=== PATIENT | female | born 1970 | race Caucasian/White ===

== ENCOUNTER 2020-06-13 18:01 | Emergency (ER) | payer OTHER, SELFPAY ==
[2020-06-13] VITALS (10 sets, daily range): BP systolic 117–143; BP diastolic 76–96; PULSE 80–99; RESP 17–31; TEMP 36.6; O2SAT 96–100
--- NOTE | ~2020-06-13 | CT_ITS ---
EXAMINATION: CT BRAIN W/O DATE: 06/13/2020 18:41 INDICATION: Seizure TECHNIQUE: Computed tomography (CT) of the head was performed without intravenous contrast. The dose- length product was 605.33 mGy-cm. The mA was adjusted according to patient size. Iterative reconstruc tion technique was employed. COMPARISON: CT dated 05/29/2017 FINDINGS: Normal brain parenchymal volume for age. Normal rosenberg-white differentiation. No acute intrac ranial hemorrhage, infarction, mass or mass effect. No ventriculomegaly or midline shift. Midline sagittal images demonstrate a normal corpus callosum, c raniovertebral junction and sella turcica. Basilar cisterns are patent. Paranasal sinuses and mastoids are pneumatized. No depressed skull fractures. IMPRESSION: 1. No acute intracranial abnormality. Reviewed, dictated and finalized at location A.
--- NOTE | 2020-06-13 18:10 | ECG_ITS ---
Measurements Intervals [place] Rate: 93 P: 58 SC: 133 QRS: 50 QRSD: 91 T: 34 QT: 369 QTc: 460 Interpretive Statements SINUS RHYTHM BORDERLINE ST ABNORMALITY- ANTEROLAT/INF LEADS BASELINE ARTIFACT- II, III, V3 BORDERLINE ECG Electronically Signed On 06-14-2020 11:30:18 CDT by Bethel Foster D.O.
[2020-06-13 18:22] LABS: Basophils Absolute Auto 0.1 K/mm3 (0.0-0.1); Basophils Percent Auto 0.5 % (0.2-1.2); Eosinophils Absolute Auto 0.2 K/mm3 (0-0.3); Eosinophils Percent Auto 1.8 % (0-4.4); Hematocrit 33.3 % (37.0-47.0); Immature Granulocyte Absolute 0.04 K/mm3 (0.00-0.031); Immature Granulocyte Percent A 0.4 % (0-0.5); Lymphocytes Absolute Auto 4.67 K/mm3 (0.9-3.2); Lymphocytes Percent Auto 48.3 % (18.3-44.2); Mean Corpuscular Hemoglobin 29.3 pg (26-34); Mean Corpuscular Volume 88.8 fl (80-100); Mean Platelet Volume 10.5 fl (7.4-10.4); Monocytes Absolute Auto 0.6 K/mm3 (0.1-0.6); Monocytes Percent Auto 5.8 % (2.6-8.5); Neutrophils Absolute Auto 4.2 K/mm3 (1.3-6.7); Neutrophils Percent Auto 43.2 % (45.5-73.1); Platelet Count Result 212 k/mm3 (150-375); Red Blood Count 3.75 M/mm3 (4.2-5.4); Red Cell Distribution Width 15.4 % (11.5-14.5); White Blood Count 9.7 K/mm3 (4.5-10.0)
--- NOTE | 2020-06-13 18:30 | ED.GENADULT ---
HPI - General Adult General Chief complaint: Seizure Stated complaint: SEIZURE Time Seen by Provider: 06/13/20 18:05 Source: patient and family (father) Mode of arrival: EMS Limitations: altered mental status History of Present Illness HPI narrative: Pt was at [employer] with father, he met her there to help her grocery shop. States that she was confused when she arrived at the store, she completed her shopping and while in line was dropping her items on the floor instead of the belt. When he asked her what she was doing she stated she was having trouble seeing. When they walked out she quit talking to him, then he noticed her right hand shaking. She then lowered to the apartment groundskeeper had generalized jerking of all extremities. Pt was postictal when EMS arrived. She remains confused here in ED and history is from father. Pt denies any recent drug use, but father states that she just, in the past month completed 28 day rehab for methamphetamine and possibly cocaine. She was at work earlier today, she lives alone but her father handles her finances due to her drug history. Mother reports that patient had 2 prior seizures, several years ago and does not seem to have been treated. Related Data Allergies Allergy/AdvReac Type Severity Reaction Status Date / Time No Known Allergies Allergy Unverified 05/29/17 06:24 Course Course Emergency Course: Pt is alert and oriented now. Spoke with Dr. Martines from neurology. He recommends starting Keppra 500 mg twice daily and follow-up with him in the office. Patient states that her last seizure was 6 years ago and she did not receive any follow-up at that time or medication. Plan discussed with patient and her father. Vital Signs Vital signs: Vital Signs Temperature 36.6 C 06/13/20 18:03 Pulse Rate 99 06/13/20 18:03 Respiratory Rate 18 06/13/20 18:03 Blood Pressure 132/87 06/13/20 18:03 Pulse Oximetry 96 06/13/20 18:03 Temperature 36.6 C 06/13/20 18:03 Pulse Rate 97 06/13/20 18:08 Respiratory Rate 18 06/13/20 18:03 Blood Pressure 132/87 06/13/20 18:03 Pulse Oximetry 96 06/13/20 18:03 Medical Decision Making Vital Signs Vital Signs: Vital Signs Temperature 36.6 C 06/13/20 18:03 Pulse Rate 99 06/13/20 18:03 Respiratory Rate 18 06/13/20 18:03 Blood Pressure 132/87 06/13/20 18:03 Pulse Oximetry 96 06/13/20 18:03 Temperature 36.6 C 06/13/20 18:03 Pulse Rate 97 06/13/20 18:08 Respiratory Rate 18 06/13/20 18:03 Blood Pressure 132/87 06/13/20 18:03 Pulse Oximetry 96 06/13/20 18:03 Lab Data Result diagrams: 06/13/20 18:15 06/13/20 18:15 Labs: Lab Results 06/13/20 06/13/20 Range/Units 18:15 18:15 WBC 9.7 (4.5-10.0) K/mm3 RBC 3.75 L (4.2-5.4) M/mm3 Hgb 11.0 L (12.0-15.0) g/dL Hct 33.3 L (37.0-47.0) % MCV 88.8 (80-100) fl MCH 29.3 (26-34) pg MCHC 33.0 (32-36) g/dl RDW 15.4 H (11.5-14.5) % Plt Count 212 (150-375) k/mm3 MPV 10.5 H (7.4-10.4) fl Immature Gran % (Auto) 0.4 (0-0.5) % Neut % (Auto) 43.2 L (45.5-73.1) % Lymph % (Auto) 48.3 H (18.3-44.2) % [place] % (Auto) 5.8 (2.6-8.5) % Eos % (Auto) 1.8 (0-4.4) % Baso % (Auto) 0.5 (0.2-1.2) % Lymph # (Auto) 4.67 H (0.9-3.2) K/mm3 [place] # (Auto) 0.6 (0.1-0.6) K/mm3 Eos # (Auto) 0.2 (0-0.3) K/mm3 Baso # (Auto) 0.1 (0.0-0.1) K/mm3 Abs Immat Gran (auto) 0.04 H (0.00-0.031) K/mm3 Absolute Neuts (auto) 4.2 (1.3-6.7) K/mm3 Absolute Nucleated RBC 0.0 (0.0-0.012) K/mm3 Nucleated RBC % 0.0 (0.0-0.2) % Sodium Pending Potassium Pending Chloride Pending Carbon Dioxide Pending Anion Gap Pending BUN Pending Creatinine Pending Estim Creat Clear Calc Pending Estimated GFR Pending Glucose Pending Calcium Pending Total Bilirubin Pending AST Pending ALT Pending Alkaline Phosphatase Pending Total Protein Pe
[2020-06-13 18:35] LABS: Alanine Aminotransferase 22 U/L (4-35); Albumin Level 4.2 g/dL (3.5-5.1); Alkaline Phosphatase 78 U/L (38-126); Anion Gap 13 mmol/L (8-16); Aspartate Amino Transferase 30 U/L (14-36); Bilirubin,Total 0.5 mg/dL (0.2-1.3); Blood Urea Nitrogen 17 mg/dL (7-17); Calcium 9.1 mg/dL (8.4-10.2); Carbon Dioxide 24 mmol/L (22-30); Chloride 99 mmol/L (98-107); Estimated CRCL calculation 69 ml/min; Estimated Glomerular Filt Rate 59; Glucose 85 mg/dL (65-105); Potassium 3.6 mmol/L (3.4-5.0); Sodium 136 mmol/L (137-145)
--- NOTE | 2020-06-13 18:35 | PC.NURSE ---
PT TO CT AT THIS TIME, LAB CONTACTED ABOUT ADD ONS.
--- NOTE | 2020-06-13 19:16 | PC.NURSE ---
report to CARITO Vasquez at this time, she has assumed pt care.
[2020-06-13 19:20] LABS: Add Urine Microscopic? YES; Appearance Urine Clear (Clear); Bacteria Urine Trace /hpf; Bilirubin Urine Negative (Negative); Blood Urine 1+ (Negative); Color Urine Straw (Yellow); Glucose Urine UA Negative (Negative); Ketones Urine Negative (Negative); Leukocyte Esterase Ur Negative LEU/UL (Negative); Nitrate Urine Negative (Negative); Protein Urine 1+ mg/dL (Negative); RBC Urine 0-2 /hpf (0-2); Specific Grav Ur 1.011 (1.001-1.035); Squamous Epithelial Cell Urine Occasional /hpf (Few); Urobilinogen Urine Negative mg/dL (<2.0); WBC Urine 0-3 /hpf
[2020-06-13 19:39] LABS: Amphetamine Screen Urine Negative (Negative); Barbiturate Screen Urine Negative (Negative); Benzodiazepines Screen Urine Negative (Negative); Cannabinoid Screen Urine Negative (Negative); Cocaine Screen Urine Negative (Negative); Methadone Screen Urine Negative (Negative); Opiate Screen Urine Negative (Negative); Phencyclidine Screen Urine Negative (Negative)
[2020-06-13 21:06] LABS: Ethanol < 10 mg/dL (<10)
[2020-06-13] MEDS: ACETAMINOPHEN 325 MG TABLET 650 MG PO (21:11)
[2020-06-13] MEDS: levETIRAcetam 500 MG TABLET PO (22:05)
[2020-06-19 13:18] LABS: Methyl Alcohol Level None Detected (None Detected)
--- NOTE | 2020-06-19 23:12 | ED.GENADULT ---
HPI - General Adult General Chief complaint: Seizure Stated complaint: SEIZURE Time Seen by Provider: 06/13/20 18:05 Source: patient and family (father) Mode of arrival: EMS Limitations: altered mental status History of Present Illness HPI narrative: Patient was brought in by EMS after father called 911 when patient had a seizure while they were shopping for groceries. Father reports that patient was acting oddly prior to the seizure, complaining that she could not see, dropping food on the floor while they were checking out at the grocery store. Her seizure began as staring and right hand tremor, then she dropped to the ground slowly and had generalized jerking of all extremities. When EMS arrived she was postictal, unable to tell where she was or what it happened. She had urinated. She has a remote history of seizure, never treated. She also has a history of drug abuse and recently completed rehab. She is currently unable to give a history. Onset (ago): hour(s) Treatments prior to arrival: none Related Data Allergies Allergy/AdvReac Type Severity Reaction Status Date / Time No Known Allergies Allergy Unverified 05/29/17 06:24 Review of Systems Review of Systems: ROS unobtainable: Yes unobtainable due to mental status Exam Const: General: no acute distress Limitations: altered mental status HENMT: Head: normal to inspection Mouth: Yes tongue abnormal (bit her tongue) Eyes: Pupils: Equal, round and reactive pupils present Resp: Effort & Inspection: normal respiratory effort Auscultation: clear to auscultation bilaterally Cardio: Rate: regular rate Rhythm: regular rhythm GI: GI Palp: Yes Soft to palpation Skin: General skin exam: normal color Rashes: no rashes Wounds: no wounds Neuro: General: moves all extremities and no focal motor deficits Extrem: General: normal to inspection Psych: Appearance: disheveled Mental Status: other (unable to recount events.) Speech and movement: Slurred speech present Course Course Emergency Course: Patient's father was able to determine that the patient's last seizure was approximately 6 years ago. She was more lucid after approximately an hour. Spoke with Dr. Martines regarding seizure, he recommends starting Keppra 500 mg twice daily and patient to follow-up with him in the office. Plan discussed with patient and her father Vital Signs Vital signs: Vital Signs Temperature 36.6 C 06/13/20 18:03 Pulse Rate 99 06/13/20 18:03 Respiratory Rate 18 06/13/20 18:03 Blood Pressure 132/87 06/13/20 18:03 Pulse Oximetry 96 06/13/20 18:03 Temperature 36.6 C 06/13/20 18:03 Pulse Rate 92 06/13/20 22:13 Respiratory Rate 20 06/13/20 22:13 Blood Pressure 117/76 06/13/20 22:13 Pulse Oximetry 100 06/13/20 22:13 Medical Decision Making Vital Signs Vital Signs: Vital Signs Temperature 36.6 C 06/13/20 18:03 Pulse Rate 99 06/13/20 18:03 Respiratory Rate 18 06/13/20 18:03 Blood Pressure 132/87 06/13/20 18:03 Pulse Oximetry 96 06/13/20 18:03 Temperature 36.6 C 06/13/20 18:03 Pulse Rate 92 06/13/20 22:13 Respiratory Rate 20 06/13/20 22:13 Blood Pressure 117/76 06/13/20 22:13 Pulse Oximetry 100 06/13/20 22:13 Lab Data Result diagrams: 06/13/20 18:15 06/13/20 18:15 Labs: Lab Results 06/13/20 06/13/20 06/13/20 Range/Units 18:15 18:15 18:15 WBC 9.7 (4.5-10.0) K/mm3 RBC 3.75 L (4.2-5.4) M/mm3 Hgb 11.0 L (12.0-15.0) g/dL Hct 33.3 L (37.0-47.0) % MCV 88.8 (80-100) fl MCH 29.3 (26-34) pg MCHC 33.0 (32-36) g/dl RDW 15.4 H (11.5-14.5) % Plt Count 212 (150-375) k/mm3 MPV 10.5 H (7.4-10.4) fl Immature Gran % (Auto) 0.4 (0-0.5) % Neut % (Auto) 43.2 L (45.5-73.1) % Lymph % (Auto) 48.3 H (18.3-44.2) % [place] % (Auto) 5.8 (2.6-8.5) % Eos % (Auto) 1.8 (0-4.4) % Baso % (Auto) 0.5 (0.2-1.2) % Lymph # (Aut
== END 2020-06-13 22:16 | disposition home or self-care (01) ==
PROVIDERS: Physician Assistant; Emergency Provider Emergency Medicine; PCP Physician Assistant
DX: R56.9 Unspecified convulsions (principal); R94.31 Abnormal electrocardiogram [ECG] [EKG]
CPT/HCPCS: 36415; 70450; 80053; 80307; 81001; 84443; 84600; 85025; 93005; 99284; A9270

== ENCOUNTER 2020-10-01 12:11 | Emergency (ER) | payer OTHER, SELFPAY ==
[2020-10-01] VITALS (14 sets, daily range): BP systolic 115–182; BP diastolic 101–125; PULSE 71–129; RESP 16–30; TEMP 36.9; O2SAT 92–100
--- NOTE | ~2020-10-01 | XR_ITS ---
EXAMINATION: XR chest 1V portable INDICATION: Cough and shortness of breath TECHNIQUE: Portable AP chest at 1407 hours COMPARISON: 05/29/2017 FINDINGS: There are patchy opacities of the mid and lower lung zones. No pleural effusion or pneumoth orax is identified. The cardiomediastinal silhouette is normal. IMPRESSION: 1. Patchy opacities of the mid and lower lung zones, consistent with atelectasis versus pneumonia. Reviewed, dictated and finalized at location A. ND BAKER IMPRESSION: 1. Patchy opacities of the mid and lower lung zones, consistent with atelectasi s versus pneumonia.
[2020-10-01 13:13] LABS: Basophils Absolute Auto 0.1 K/mm3 (0.0-0.1); Basophils Percent Auto 0.5 % (0.2-1.2); Eosinophils Absolute Auto 0.2 K/mm3 (0-0.3); Eosinophils Percent Auto 1.7 % (0-4.4); Hematocrit 39.5 % (37.0-47.0); Hemoglobin 13.4 g/dL (12.0-15.0); Lymphocytes Absolute Auto 3.76 K/mm3 (0.9-3.2); Lymphocytes Percent Auto 41.1 % (18.3-44.2); Mean Corpuscular HGB Conc 33.9 g/dl (32-36); Mean Corpuscular Hemoglobin 28.3 pg (26-34); Mean Corpuscular Volume 83.5 fl (80-100); Mean Platelet Volume 10.9 fl (7.4-10.4); Monocytes Absolute Auto 0.7 K/mm3 (0.1-0.6); Monocytes Percent Auto 7.9 % (2.6-8.5); Neutrophils Absolute Auto 4.5 K/mm3 (1.3-6.7); Neutrophils Percent Auto 48.8 % (45.5-73.1); Platelet Count Result 248 k/mm3 (150-375); Red Blood Count 4.73 M/mm3 (4.2-5.4); Red Cell Distribution Width 13.3 % (11.5-14.5); White Blood Count 9.2 K/mm3 (4.5-10.0)
[2020-10-01 13:16] LABS: Add Urine Microscopic? NO; Appearance Urine Clear (Clear); Bilirubin Urine Negative (Negative); Blood Urine Negative (Negative); Color Urine Yellow (Yellow); Glucose Urine UA Negative (Negative); Ketones Urine Negative (Negative); Leukocyte Esterase Ur Negative LEU/UL (Negative); Nitrate Urine Negative (Negative); Protein Urine Negative (Negative); Specific Grav Ur 1.017 (1.001-1.035); Urobilinogen Urine Negative mg/dL (<2.0)
[2020-10-01 13:26] LABS: Alanine Aminotransferase 15 U/L (4-35); Albumin Level 4.4 g/dL (3.5-5.1); Alkaline Phosphatase 103 U/L (38-126); Anion Gap 8 mmol/L (8-16); Aspartate Amino Transferase 28 U/L (14-36); Bilirubin,Total 0.7 mg/dL (0.2-1.3); Blood Urea Nitrogen 14 mg/dL (7-17); Calcium 9.7 mg/dL (8.4-10.2); Carbon Dioxide 28 mmol/L (22-30); Chloride 103 mmol/L (98-107); Estimated CRCL calculation 75 ml/min; Estimated Glomerular Filt Rate > 60; Glucose 104 mg/dL (65-105); Lipase 147 U/L (23-300); Potassium 3.9 mmol/L (3.4-5.0); Sodium 139 mmol/L (137-145)
--- NOTE | 2020-10-01 13:30 | PC.NURSE ---
Called lab to add on Urine HCG
--- NOTE | 2020-10-01 13:39 | ECG_ITS ---
Measurements Intervals [place] Rate: 79 P: 59 CA: 146 QRS: 60 QRSD: 81 T: 42 QT: 399 QTc: 460 Interpretive Statements SINUS RHYTHM NORMAL ECG Electronically Signed On 10-01-2020 15:25:03 [employer]GER [employer]LE[employer] by Bethel Foster D.O.
--- NOTE | 2020-10-01 13:42 | ED.URI ---
HPI - URI/Sore Throat General Chief Complaint: Nausea/Vomiting/Diarrhea <JARETH Dangelo Last Filed: 10/01/20 15:56> Stated Complaint: headache <JARETH Dangelo Last Filed: 10/01/20 15:56> Time Seen by Provider: 10/01/20 13:16 <JARETH Dangelo Last Filed: 10/01/20 15:56> Source: patient <JARETH Dangelo Last Filed: 10/01/20 15:56> Mode of arrival: ambulatory <JARETH Dangelo Last Filed: 10/01/20 15:56> Limitations: no limitations <JARETH Dangelo Last Filed: 10/01/20 15:56> History of Present Illness HPI Narrative: This is a 50-year-old female that presents the emergency department for cold symptoms x2 days. Reports cough, congestion, sore throat, myalgias, nausea, vomiting. Also reports migraine headaches. Does report history of migraines. She has been taking ibuprofen with little relief. Reports some shortness of breath. Denies fever or chest pain. <JARETH Dangelo Last Filed: 10/01/20 15:56> Related Data Home Medications: Home Medications Medication Instructions Recorded Confirmed buspirone mg 10/01/20 clonazepam 10/01/20 hydroxyzine HCl 10/01/20 tizanidine mg 10/01/20 trazodone 10/01/20 10/01/20 <JARETH Dangelo Last Filed: 10/01/20 15:56> Allergies/Adverse Reactions: Allergies Allergy/AdvReac Type Severity Reaction Status Date / Time No Known Allergies Allergy Verified 10/01/20 13:12 <JARETH Dangelo Last Filed: 10/01/20 15:56> Review of Systems Review of Systems: Narrative: CONSTITUTIONAL: Denies fever ENT: Reports rhinorrhea, congestion, sore throat CARDIOVASCULAR: Denies chest pain RESPIRATORY: Reports cough and dyspnea. GASTROINTESTINAL: Reports nausea and vomiting GENITOURINARY: Denies dysuria <JARETH Dangelo Last Filed: 10/01/20 15:56> All systems reviewed & are unremarkable except as noted in HPI and below <Janell Espana PA-C - Last Filed: 10/01/20 15:56> [facility] Past Medical History Medical History: Medical History (Updated 10/01/20 @ 15:27 by Janell Espana PA-C) History of anxiety <Janell Espana PA-C - Last Filed: 10/01/20 15:56> Surgical History Surgical History: Surgical History (Updated 10/01/20 @ 14:09 by Janell Espana PA-C) History of tubal ligation <Janell Espana PA-C - Last Filed: 10/01/20 15:56> Social History Social History: Social History Gender identity (if verbalized by the patient): Female <Janell Espana PA-C - Last Filed: 10/01/20 15:56> Exam Narrative: Exam Narrative: GENERAL: Well-appearing, well-nourished, and in no acute distress. HEAD: Normocephalic, atraumatic. EYES: EOMI. ENT: Nares clear, no rhinorrhea or epistaxis. Mucous membranes moist. Oropharynx without tonsillar hypertrophy exudate or other lesions. Bilateral TMs pearly rosenberg non-bulging NECK: Supple. No adenopathy or masses. CHEST: Clear to auscultation. No respiratory distress. No wheezes rales or rhonchi HEART: Regular rate and rhythm. No murmur heard. Normal peripheral pulses. ABDOMEN: Soft, nontender, nondistended, normal active bowel sounds. EXTREMITIES: Normal range of motion. No edema. SKIN: Warm, dry, no rash. NEURO: No focal deficits. Alert and oriented x3. PSYCH: Normal mood and affect <Janell Espana PA-C - Last Filed: 10/01/20 15:56> Course Vital Signs Vital signs: Vital Signs Temperature 98.4 F 10/01/20 12:52 Pulse Rate 129 H 10/01/20 12:52 Respiratory Rate 18 10/01/20 12:52 Blood Pressure 118/107 H 10/01/20 12:52 Pulse Oximetry 100 10/01/20 12:52 Temperature 98.4 F 10/01/20 12:52 Pulse Rate 71 10/01/20 16:13 Respiratory Rate 16 10/01/20 16:13 Blood Pressure 164/106 H 10/01/20 16:13 Pulse Oximetry 100 10/01/20 16:13 <Janell Espana PA-C - Last Filed: 10/01/20 15:56> Vital Signs Te
[2020-10-01 13:57] LABS: Pregnancy On Board Control Positive; Urine Pregnancy Test Negative
[2020-10-01] MEDS: KETOROLAC 30 MG/ML VIAL (*BKC) IV PUSH (14:10)
[2020-10-01] MEDS: diphenhydrAMINE HCl INJ 50 MG/ML VIAL 25 MG IV PUSH (14:10)
[2020-10-01] MEDS: METOCLOPRAMIDE HCL INJ 10 MG/2 ML VIAL IV PUSH (14:11)
[2020-10-01] MEDS: SODIUM CHLORIDE 0.9% IV 1,000 ML 999 ML IV CONT (14:11)
[2020-10-02 13:13] LABS: SARS-CoV-2 RNA PCR Negative
== END 2020-10-01 16:15 | disposition home or self-care (01) ==
PROVIDERS: Physician Assistant; Emergency Provider General Practice; PCP Physician Assistant
DX: J18.9 Pneumonia, unspecified organism (principal); Z20.822 Contact with and (suspected) exposure to COVID-19; F41.9 Anxiety disorder, unspecified
CPT/HCPCS: 36415; 71045; 80053; 81003; 81025; 83690; 85025; 87804; 93005; 96361; 96374; 96375; 99284; C9803; J0131; J1200; J1885; J2765; J7030; U0003; U0005

== ENCOUNTER 2023-10-27 12:33 | Inpatient (IN) | payer OTHER, SELFPAY ==
[2023-10-27] VITALS (11 sets, daily range): BP systolic 150–169; BP diastolic 84–106; PULSE 112–133; RESP 16–20; TEMP 36.7–38.2; O2SAT 99–100; BMI 22.8
--- NOTE | ~2023-10-27 | CT_ITS ---
EXAMINATION: CT facial bones w con DATE: 10/27/2023 13:49 INDICATION: Dental abscess. Left facial swelling. TECHNIQUE: Computed tomography (CT) of the facial bones and maxillofacial region was performed with 7 5 mL Omnipaque 350 intravenous contrast. Automated exposure control and iterative reconstruction tech Lucky Oysterque were employed. The dose-length product was 331.01 mGy-cm. COMPARISON: None. FINDINGS: There is left face soft tissue swelling. There are mildly enlarged left submandibular lymph nodes, likely reactive. There is mild mucosal thickening in the paranasal sinuses. The mastoid air c ells are normal. The orbits are normal. There are carious lesions involving all of the teeth. Multipl e teeth are broken. There are periapical lucencies at many of the teeth. Periapical lucencies breech the buccal cortex of the alveolar process at teeth 11, 22, 26, and 28. IMPRESSION: 1. Extensive dental disease. 2. Left face soft tissue swelling. No soft tissue abscess. 3. Mild left submandibular lymphadenopathy, likely reactive. Reviewed, dictated and finalized at location A.
[2023-10-27 13:08] LABS: Basophils Absolute Auto 0.1 K/mm3 (0.0-0.1); Basophils Percent Auto 0.3 % (0.2-1.2); Eosinophils Absolute Auto 0.1 K/mm3 (0-0.3); Eosinophils Percent Auto 0.3 % (0-4.4); Hematocrit 38.5 % (37.0-47.0); Hemoglobin 12.8 g/dL (12.0-15.0); Immature Granulocyte Absolute 0.12 K/mm3 (0.00-0.031); Immature Granulocyte Percent A 0.6 % (0-0.5); Lymphocytes Absolute Auto 1.98 K/mm3 (0.9-3.2); Lymphocytes Percent Auto 9.3 % (18.3-44.2); Mean Corpuscular HGB Conc 33.2 g/dl (32-36); Mean Corpuscular Hemoglobin 29.2 pg (26-34); Mean Corpuscular Volume 87.7 fl (80-100); Mean Platelet Volume 10.8 fl (7.4-10.4); Monocytes Absolute Auto 1.3 K/mm3 (0.1-0.6); Monocytes Percent Auto 6.1 % (2.6-8.5); Neutrophils Absolute Auto 17.8 K/mm3 (1.3-6.7); Neutrophils Percent Auto 83.4 % (45.5-73.1); Platelet Count Result 276 k/mm3 (150-375); Red Blood Count 4.39 M/mm3 (4.2-5.4); Red Cell Distribution Width 14.4 % (11.5-14.5); White Blood Count 21.3 K/mm3 (4.5-10.0)
--- NOTE | 2023-10-27 13:17 | ED.DENTAL ---
HPI - Dental/Oral General Chief complaint: Dental/Oral <JARETH Dangelo Last Filed: 10/27/23 18:26> Stated complaint: dental infection <JARETH Dangelo Last Filed: 10/27/23 18:26> Time Seen by Provider: 10/27/23 12:41 <JARETH Dangelo Last Filed: 10/27/23 18:26> Source: patient <JARETH Dangelo Last Filed: 10/27/23 18:26> Mode of arrival: ambulatory <JARETH Dangelo Last Filed: 10/27/23 18:26> Limitations: no limitations <JARETH Dangelo Last Filed: 10/27/23 18:26> History of Present Illness HPI Narrative: This is a 53 year old female that presents to the ER for swelling and pain to the left lower lip. Ongoing since yesterday. Reports associated fevers. Denies drainage from the area of dysphagia. <JARETH Dangelo Last Filed: 10/27/23 18:26> Related Data Home medications: Home Medications Medication Instructions Recorded Confirmed buspirone 5 mg tablet mg 10/01/20 clonazepam 0.5 mg tablet 10/01/20 hydroxyzine HCl 25 mg tablet 10/01/20 tizanidine 4 mg tablet mg 10/01/20 trazodone 50 mg tablet 10/01/2021 <JARETH Dangelo Last Filed: 10/27/23 18:26> Allergies/adverse reactions: Allergies Allergy/AdvReac Type Severity Reaction Status Date / Time No Known Allergies Allergy Verified 10/27/23 12:40 <JARETH Dangelo Last Filed: 10/27/23 18:26> Review of Systems Review of Systems: CONSTITUTIONAL: Denies fever ENT: Reports dentalgia. Denies sore throat RESPIRATORY: Denies dyspnea. <JARETH Dangelo Last Filed: 10/27/23 18:26> All systems reviewed & are unremarkable except as noted in HPI and below <Janell Espana PA-C - Last Filed: 10/27/23 18:26> [facility] Past Medical History Medical History: Medical History (Updated 10/27/23 @ 14:50 by Janell Espana PA-C) History of anxiety <Janell Espana PA-C - Last Filed: 10/27/23 18:26> Surgical History Surgical History: Surgical History (Updated 10/27/23 @ 13:20 by Janell Espana PA-C) History of hysterectomy History of tubal ligation <Janell Espana PA-C - Last Filed: 10/27/23 18:26> Social History Social History: Social History (Updated 10/27/23 @ 13:20 by Janell Espana PA-C) Substance use: never Gender identity (if verbalized by the patient): Female <Janell Espana PA-C - Last Filed: 10/27/23 18:26> Exam Narrative: GENERAL: Well-appearing, well-nourished, and in no acute distress. HEAD: Normocephalic, atraumatic. EYES: EOMI. ENT: Nares clear, no rhinorrhea or epistaxis. Mucous membranes moist. Oropharynx without tonsillar hypertrophy exudate or other lesions. Poor dentition. Severe swelling of the left lower lip with overlying erythema, extension into the left mandible. No trismus. Floor of mouth is soft NECK: Supple. Left sided submandibular adenopathy CHEST: Clear to auscultation. No respiratory distress. No wheezes rales or rhonchi HEART: Tachycardic, regular rhythm. No murmur heard. Normal peripheral pulses. EXTREMITIES: Normal range of motion. No edema. SKIN: Warm, dry, no rash. NEURO: No focal deficits. Alert and oriented x3. PSYCH: Normal mood and affect <Janell Espana PA-C - Last Filed: 10/27/23 18:26> Course Course Emergency Course: Patient updated on workup and recommendation for admission <Janell Espana PA-C - Last Filed: 10/27/23 18:26> BATCH ATTENDANT/PA Physician Supervision I agree with midlevel documentation; I performed the medical decision making component of this evaluation. <Cary Caruso MD - Last Filed: 10/27/23 18:48> Consultations Consultation #1: Spoke with hospitalist about patient and workup who accepts admission <Janell Espana PA-C - Last Filed: 10/27/23 18:26> Date: 10/27/23 <Janell Espana PA-C - Last Filed: 10/27/23 18:26> Vital Signs Vital signs: Vital Signs Temperature 100.7 F H 10/27/23
[2023-10-27 13:18] LABS: Lactic Acid Reflex 1.5 mmol/L (0.7-2.0)
[2023-10-27 13:21] LABS: Alanine Aminotransferase 15 U/L (6-35); Albumin Level 4.5 g/dL (3.5-5.1); Alkaline Phosphatase 137 U/L (38-126); Anion Gap 6 mmol/L (8-16); Aspartate Amino Transferase 23 U/L (14-36); Bilirubin,Total 1.3 mg/dL (0.2-1.3); Blood Urea Nitrogen 15 mg/dL (7-17); CRP 6.9 mg/dL (<1.0); Calcium 9.6 mg/dL (8.4-10.2); Carbon Dioxide 31 mmol/L (22-30); Chloride 94 mmol/L (98-107); Estimated CRCL calculation 79 ml/min; Estimated Glomerular Filt Rate > 60; Glucose 159 mg/dL (65-110); Potassium 3.3 mmol/L (3.4-5.0); Sodium 131 mmol/L (137-145)
[2023-10-27] MEDS: SODIUM CHLORIDE 0.9% IV 1,000 ML 999 ML IV CONT ×2 (13:33→14:58)
[2023-10-27] MEDS: IBUPROFEN IV 800 MG/200 ML 800 MG/200 ML BAG 400 MG IVPB (13:34)
[2023-10-27 13:35] LABS: Magnesium 1.9 mg/dL (1.6-2.3)
[2023-10-27 14:15] LABS: Erythrocyte Sedimentation Rate 57 mm/hr (0-20)
[2023-10-27] MEDS: VANCOMYCIN 1,000 MG/NS 250 ML 1,000 MG/250 ML BAG 250 MG IVPB (14:31)
[2023-10-27] MEDS: POTASSIUM CHLORIDE INJ 40 MEQ in SODIUM CHLORIDE 0.9% IV 500 ML 130 MEQ IVPB (14:57)
[2023-10-27] MEDS: hydrALAZINE HCL 20 MG/ML VIAL 10 MG IV PUSH (18:41)
[2023-10-27] MEDS: SODIUM CHLORIDE 0.9% IV 1,000 ML 125 ML IV CONT (18:41)
[2023-10-27] MEDS: methylPREDNISolone SOD SUCC 125 MG VIAL IV PUSH (19:05)
[2023-10-27] MEDS: MORPHINE SULFATE (*CRX) 2 MG/ML INJ IV PUSH ×2 (19:05→23:18)
--- NOTE | 2023-10-27 19:43 | ADMGEN ---
This patient, Belinda Kidd, was admitted to Medical Room 344-01. Patient/family oriented to hospital policies and general routines including ID bracelet, bed and alarms, visiting hours, pain management, procedures, bathroom and other care routines, personal items, smoking policy, room service/diet, and visiting hours. Information on how to activate the Rapid Response Team has been discussed. Patient/Family are encouraged to report perceived risks to care and to ask questions if they do not understand what they are told or what they should do.
[2023-10-27] MEDS: HYDROcodone/acetaminophen (*CRX) 5-325 MG TABLET 1 TAB PO (19:55)
--- NOTE | 2023-10-27 23:18 | PM.IMHP ---
H&P: HPI History of Present Illness Date/Time: 10/27/23 23:18 Chief Complaint: Pain and swelling left lower lip. This is a 53-year-old female patient with a past medical history of chronic anxiety who came to the emergency room complaining of swelling and pain to the left lower lip. Patient said that she woke up yesterday and found her lower lip swelling on the left side. She was complaining of pain. Patient is awake alert not in acute distress. Denies any fever chills dizziness lightheadedness no blurred vision no chest pain shortness a breath no cough no nausea no vomiting no diarrhea no dysuria no muscle and joint pains. Vital signs in the emergency room was stable. CBC showed WBC count of 21.3 hemoglobin 12.8 hematocrit 38.5 platelets count 276. After neutrophils 17.8. CMP showed sodium 131 potassium 3.3 chloride 94 carbon dioxide 31 BUN 15 creatinine 0.70 glucose 159. Lactic acid 1.5. Calcium 9.6 magnesium 1.9 alkaline phosphatase 137. CRP 6.9. CT facial bone showed extensive dental disease. Left face soft tissue swelling. No soft tissue abscess. Mild left submandibular lymphadenopathy likely reactive patient was given IV vancomycin and was started on oral penicillin in the emergency room. Review of Systems Review of Systems: A 12 point review of system is done and is only positive with dictated in the history of present illness. [facility] Past Medical History Medical History (Updated 10/27/23 @ 14:50 by Janell Espana PA-C) History of anxiety Surgical History Surgical History (Updated 10/27/23 @ 13:20 by Janell Espana PA-C) History of hysterectomy History of tubal ligation Social History Social History (Updated 10/27/23 @ 13:20 by Janell Espana PA-C) Smoking status: Former smoker Alcohol intake: never Substance use: never Do You Feel Safe in your Home?: Yes Lack of Transportation: No Lack of Food: Never True Current Housing: I Have Housing Concerned About Future Housing: No Difficulty Paying Gas/Electric Bills: No Difficulty Paying for Meds: No Currently Unemployed: No Education: High School Diploma/GED Difficulty w/ Childcare or Family Care: No Gender identity (if verbalized by the patient): Female Spiritual care concerns: No Meds Home Medications and Allergies Home Medications Medication Instructions Recorded Confirmed Type albuterol sulfate 90 mcg/actuation 2 inh inhalation Q4-6H PRN 10/01/20 10/27/23 Rx breath activated powder inhaler shortness of breath #1 ea buspirone 5 mg tablet 5 mg PO BID 10/01/20 10/27/23 History clonazepam 0.5 mg tablet 0.5 mg PO TID PRN Anxiety 10/01/20 10/27/23 History hydroxyzine HCl 25 mg tablet 25 mg PO TID PRN Anxiety 10/01/20 10/27/23 History trazodone 50 mg tablet 50 mg PO HS PRN Insomnia 10/01/20 10/27/23 History Allergies Allergy/AdvReac Type Severity Reaction Status Date / Time No Known Allergies Allergy Verified 10/27/23 12:40 Vital Signs Vital Signs - 24 hr 10/27/23 12:35 10/27/23 12:51 10/27/23 13:57 Temperature 100.7 F H Pulse Rate 133 H 133 H 123 H Respiratory Rate 18 20 18 Blood Pressure 155/106 H 168/101 H 164/100 H Pulse Oximetry 99 99 99 Oxygen Delivery Room Air 10/27/23 14:45 10/27/23 17:00 10/27/23 15:27 Temperature 98.9 F 98.0 F 98.4 F Pulse Rate 115 H 112 H 113 H Respiratory Rate 18 16 19 Blood Pressure 158/102 H 154/100 H 151/100 H Pulse Oximetry 100 100 100 Oxygen Delivery 10/27/23 16:00 10/27/23 17:23 10/27/23 18:31 Temperature 98.2 F 98.0 F 98.3 F Pulse Rate 113 H 114 H 116 H Respiratory Rate 17 18 20 Blood Pressure 151/102 H 164/104 H 169/97 H Pulse Oximetry 100 100 100 Oxygen Delivery 10/27/23 19:42 10/27/23 20:00 Temperature 99.2 F Pulse Rate 125 H 120 H Respiratory Rate 18 Blood Pressure 150/84 H Pulse Oximetry 100 Oxygen Delivery Exam Const: Other: Awake alert not in any acute distress. HENMT: Other: Swelling and
[2023-10-27] MEDS: clonazePAM (*CRX) 0.5 MG TABLET PO (23:32)
[2023-10-27] MEDS: busPIRone HCL 5 MG TABLET PO (23:32)
[2023-10-27] MEDS: traZODone HCL 50 MG TABLET PO (23:32)
[2023-10-27] MEDS: AMPICILLIN SULB 3 GM/NS 100 ML 3 GM/100 ML VIAL IVPB (23:32)
[2023-10-28] VITALS (9 sets, daily range): BP systolic 109–146; BP diastolic 54–84; PULSE 99–123; RESP 16; TEMP 36.4–37.1; O2SAT 99–100
[2023-10-28] MEDS: HYDROcodone/acetaminophen (*CRX) 5-325 MG TABLET 1 TAB PO ×4 (04:04→23:34)
[2023-10-28] MEDS: SODIUM CHLORIDE 0.9% IV 1,000 ML 125 ML IV CONT ×2 (04:05→19:58)
[2023-10-28] MEDS: AMPICILLIN SULB 3 GM/NS 100 ML 3 GM/100 ML VIAL IVPB ×4 (05:49→23:00)
[2023-10-28 06:30] LABS: Basophils Percent Auto 0.1 % (0.2-1.2); Hematocrit 32.2 % (37.0-47.0); Hemoglobin 10.5 g/dL (12.0-15.0); Immature Granulocyte Percent A 0.7 % (0-0.5); Lymphocytes Percent Auto 5.9 % (18.3-44.2); Mean Corpuscular HGB Conc 32.6 g/dl (32-36); Mean Corpuscular Hemoglobin 28.9 pg (26-34); Mean Corpuscular Volume 88.7 fl (80-100); Monocytes Absolute Auto 0.1 K/mm3 (0.1-0.6); Monocytes Percent Auto 0.8 % (2.6-8.5); Neutrophils Absolute Auto 12.6 K/mm3 (1.3-6.7); Neutrophils Percent Auto 92.5 % (45.5-73.1); Platelet Count Result 231 k/mm3 (150-375); Red Blood Count 3.63 M/mm3 (4.2-5.4); Red Cell Distribution Width 14.5 % (11.5-14.5); White Blood Count 13.6 K/mm3 (4.5-10.0)
[2023-10-28 06:42] LABS: Alanine Aminotransferase 12 U/L (6-35); Albumin Level 3.4 g/dL (3.5-5.1); Alkaline Phosphatase 100 U/L (38-126); Anion Gap 2 mmol/L (8-16); Aspartate Amino Transferase 21 U/L (14-36); Bilirubin,Total 0.6 mg/dL (0.2-1.3); Blood Urea Nitrogen 11 mg/dL (7-17); Calcium 8.7 mg/dL (8.4-10.2); Carbon Dioxide 28 mmol/L (22-30); Chloride 106 mmol/L (98-107); Estimated CRCL calculation 107 ml/min; Estimated Glomerular Filt Rate > 60; Glucose 162 mg/dL (65-110); Potassium 3.7 mmol/L (3.4-5.0); Sodium 136 mmol/L (137-145)
[2023-10-28] MEDS: busPIRone HCL 5 MG TABLET PO ×2 (08:15→16:40)
--- NOTE | 2023-10-28 15:59 | PM.IMPN ---
Progress Note: A&P Assessment and Plan (1) Facial cellulitis: Code(s): L03.211 - Cellulitis of face Status: Acute Assessment and Plan: Unasyn 3 g IV q.6 hours WBC 21.3 --> 13.6 this am continue to monitor response PRN pain medications Subjective Date/time seen: 10/28/23 15:59 Interval history: Patient denies chest pain, SOB or fever/chills on exam. She is in no acute distress. Denies any known wounds to her lip or mouth, but known dental abscess which is likely cause for her infection. Her AB has been switched to Unasyn, will continue to monitor response. Exam Narrative: GENERAL: Well-appearing, well-nourished, and in no acute distress. HEAD: Normocephalic, atraumatic. EYES: EOMI, PERRLA ENT: Mucous membranes moist. Severe swelling of the left lower lip with overlying erythema, extension into the left mandible. No trismus. Floor of mouth is soft NECK: Supple. Left sided submandibular adenopathy CHEST: Clear to auscultation. No respiratory distress. HEART: Tachycardic, regular rhythm. No murmur heard. Normal peripheral pulses. EXTREMITIES: Normal range of motion. No edema. SKIN: Warm, dry, no rash. NEURO: No focal deficits. Alert and oriented x3. PSYCH: Normal mood and affect Objective Data Vital Signs Vital Signs: Vital Signs - 24 hr 10/27/23 17:00 10/27/23 16:00 10/27/23 17:23 Temperature 98.0 F 98.2 F 98.0 F Pulse Rate 112 H 113 H 114 H Respiratory Rate 16 17 18 Blood Pressure 154/100 H 151/102 H 164/104 H Pulse Oximetry 100 100 100 Oxygen Delivery 10/27/23 18:31 10/27/23 19:42 10/27/23 20:00 Temperature 98.3 F 99.2 F Pulse Rate 116 H 125 H 120 H Respiratory Rate 20 18 Blood Pressure 169/97 H 150/84 H Pulse Oximetry 100 100 Oxygen Delivery 10/28/23 00:00 10/28/23 04:00 10/28/23 06:48 Temperature 97.6 F Pulse Rate 116 H 111 H 113 H Respiratory Rate 16 Blood Pressure 146/84 H Pulse Oximetry 100 Oxygen Delivery 10/28/23 08:18 10/28/23 14:00 10/28/23 08:04 Temperature 98.7 F Pulse Rate 99 112 H Respiratory Rate 16 Blood Pressure 109/54 L Pulse Oximetry 99 Oxygen Delivery Room Air 10/28/23 12:05 Temperature Pulse Rate 123 H Respiratory Rate Blood Pressure Pulse Oximetry Oxygen Delivery Intake/Output Intake/Output: Intake & Output 10/25/23 10/26/23 10/27/23 10/28/23 23:59 23:59 23:59 23:59 Intake Total 2970 1820 Output Total 800 Balance 2970 1020 Meds/Results Medications: Active Medications Generic Name Dose Route Start Last Admin Trade Name Freq PRN Reason Stop Dose Admin Acetaminophen 500 mg 10/27/23 18:41 Acetaminophen 500 Mg Tablet PO Q6H PRN Mild Pain (1-3) or Fever Hydrocodone Bitart/Acetaminophen 1 tab 10/27/23 18:41 10/28/23 11:09 Hydrocodone/Acetaminophen (*Crx) 5-325 Mg Tablet PO 1 tab Q6H PRN Administration Pain Rated 4-6 Buspirone HCl 5 mg 10/27/23 23:20 10/28/23 08:15 Buspirone Hcl 5 Mg Tablet PO 5 mg BID MONIKA Administration Clonazepam 0.5 mg 10/27/23 23:14 10/27/23 23:32 Clonazepam (*Crx) 0.5 Mg Tablet PO 0.5 mg TID PRN Administration Anxiety Sodium Chloride 1,000 mls @ 125 mls/hr 10/27/23 17:25 10/28/23 04:05 Normal Saline Iv IV CONT 125 mls/hr .Q8H MONIKA Administration Ampicillin Sodium/Sulbactam Sodium 3 gm in 100 mls @ 200 mls/hr 10/28/23 00:00 10/28/23 11:10 Unasyn 3 Gm/Ns 100 Ml IVPB 200 mls/hr Q6H MONIKA Administration Morphine Sulfate 2 mg 10/27/23 18:41 10/27/23 23:18 Morphine Sulfate (*Crx) 2 Mg/Ml Inj IV PUSH 2 mg Q4H PRN Administration Pain Rated 7-10 Trazodone HCl 50 mg 10/27/23 23:14 10/27/23 23:32 Trazodone Hcl 50 Mg Tablet PO 50 mg HS PRN Administration Insomnia Radiology Results: ITS Impressions Face CT 10/27/23 14:02 IMPRESSION: 1. Extensive dental disease. 2. Left face soft tissue swelling. No soft tissue abscess. 3. Mild left sub
[2023-10-28] MEDS: FAMOTIDINE 10 MG TABLET PO (17:38)
[2023-10-28] MEDS: MORPHINE SULFATE (*CRX) 2 MG/ML INJ IV PUSH (19:57)
[2023-10-28] MEDS: clonazePAM (*CRX) 0.5 MG TABLET PO (23:00)
[2023-10-28] MEDS: traZODone HCL 50 MG TABLET PO (23:00)
[2023-10-29] VITALS: PULSE 114
[2023-10-29 04:00] VITALS: PULSE 104
[2023-10-29] MEDS: SODIUM CHLORIDE 0.9% IV 1,000 ML 125 ML IV CONT (05:04)
[2023-10-29] MEDS: AMPICILLIN SULB 3 GM/NS 100 ML 3 GM/100 ML VIAL IVPB ×2 (05:04→12:42)
[2023-10-29] MEDS: MORPHINE SULFATE (*CRX) 2 MG/ML INJ IV PUSH (05:16)
[2023-10-29 05:26] VITALS: BP 126/83; PULSE 95; RESP 16; TEMP 36.8; O2SAT 98
[2023-10-29 06:43] LABS: Basophils Absolute Auto 0.1 K/mm3 (0.0-0.1); Basophils Percent Auto 0.4 % (0.2-1.2); Eosinophils Percent Auto 0.2 % (0-4.4); Hematocrit 28.3 % (37.0-47.0); Immature Granulocyte Absolute 0.06 K/mm3 (0.00-0.031); Immature Granulocyte Percent A 0.4 % (0-0.5); Lymphocytes Absolute Auto 3.66 K/mm3 (0.9-3.2); Mean Corpuscular HGB Conc 31.8 g/dl (32-36); Mean Corpuscular Hemoglobin 28.5 pg (26-34); Mean Corpuscular Volume 89.6 fl (80-100); Mean Platelet Volume 10.7 fl (7.4-10.4); Monocytes Absolute Auto 0.9 K/mm3 (0.1-0.6); Monocytes Percent Auto 6.3 % (2.6-8.5); Neutrophils Absolute Auto 8.9 K/mm3 (1.3-6.7); Neutrophils Percent Auto 65.7 % (45.5-73.1); Platelet Count Result 200 k/mm3 (150-375); Red Blood Count 3.16 M/mm3 (4.2-5.4); Red Cell Distribution Width 14.7 % (11.5-14.5); White Blood Count 13.6 K/mm3 (4.5-10.0)
[2023-10-29 07:17] LABS: Anion Gap 0 mmol/L (8-16); Blood Urea Nitrogen 9 mg/dL (7-17); Calcium 7.9 mg/dL (8.4-10.2); Carbon Dioxide 29 mmol/L (22-30); Chloride 110 mmol/L (98-107); Estimated CRCL calculation 107 ml/min; Estimated Glomerular Filt Rate > 60; Glucose 96 mg/dL (65-110); Sodium 139 mmol/L (137-145)
[2023-10-29 08:00] VITALS: PULSE 102
[2023-10-29] MEDS: POTASSIUM CHLORIDE 20 MEQ PACKET (FOR LIQUID) 40 MEQ PO (08:42)
[2023-10-29] MEDS: busPIRone HCL 5 MG TABLET PO (08:42)
[2023-10-29] MEDS: FAMOTIDINE 10 MG TABLET PO (08:42)
[2023-10-29] MEDS: HYDROcodone/acetaminophen (*CRX) 5-325 MG TABLET 1 TAB PO (10:32)
[2023-10-29] MEDS: clonazePAM (*CRX) 0.5 MG TABLET PO (10:33)
--- NOTE | 2023-10-29 14:04 | PM.IMPN ---
Progress Note: A&P Assessment and Plan (1) Facial cellulitis: Code(s): L03.211 - Cellulitis of face Status: Acute Assessment and Plan: Unasyn 3 g IV q.6 hours WBC 21.3 --> 13.6 this am continue to monitor response PRN pain medications Subjective Date/time seen: 10/29/23 14:04 Interval history: Patient decided to leave AMA. Discussed this morning about continuing to monitor response to AB therapy as her WBC was still elevated and her potassium was low. Patient at the time was agreeable. Review of Systems Review of Systems: A 12 point review of system is done and is only positive with dictated in the history of present illness. All systems reviewed & are unremarkable except as noted in HPI and below Exam Narrative: GENERAL: Well-appearing, well-nourished, and in no acute distress. HEAD: Normocephalic, atraumatic. EYES: EOMI, PERRLA ENT: Mucous membranes moist. Severe swelling of the left lower lip with overlying erythema, extension into the left mandible. No trismus. Floor of mouth is soft NECK: Supple. Left sided submandibular adenopathy CHEST: Clear to auscultation. No respiratory distress. HEART: Tachycardic, regular rhythm. No murmur heard. Normal peripheral pulses. EXTREMITIES: Normal range of motion. No edema. SKIN: Warm, dry, no rash. NEURO: No focal deficits. Alert and oriented x3. PSYCH: Normal mood and affect Objective Data Vital Signs Vital Signs: Vital Signs - 24 hr 10/28/23 16:04 10/28/23 19:52 10/28/23 20:00 Temperature 98.5 F Pulse Rate 106 H 114 H 122 H Respiratory Rate 16 Blood Pressure 146/75 H Pulse Oximetry 100 Oxygen Delivery 10/29/23 00:00 10/29/23 04:00 10/29/23 05:26 Temperature 98.2 F Pulse Rate 114 H 104 H 95 Respiratory Rate 16 Blood Pressure 126/83 Pulse Oximetry 98 Oxygen Delivery 10/29/23 08:00 Temperature Pulse Rate Respiratory Rate Blood Pressure Pulse Oximetry Oxygen Delivery Room Air Intake/Output Intake/Output: Intake & Output 10/26/23 10/27/23 10/28/23 10/29/23 23:59 23:59 23:59 23:59 Intake Total 2970 4860 1820 Output Total 800 1100 Balance 2970 4060 720 Meds/Results Medications: Active Medications Generic Name Dose Route Start Last Admin Trade Name Freq PRN Reason Stop Dose Admin Acetaminophen 500 mg 10/27/23 18:41 Acetaminophen 500 Mg Tablet PO Q6H PRN Mild Pain (1-3) or Fever Hydrocodone Bitart/Acetaminophen 1 tab 10/27/23 18:41 10/29/23 10:32 Hydrocodone/Acetaminophen (*Crx) 5-325 Mg Tablet PO 1 tab Q6H PRN Administration Pain Rated 4-6 Buspirone HCl 5 mg 10/27/23 23:20 10/29/23 08:42 Buspirone Hcl 5 Mg Tablet PO 5 mg BID MONIKA Administration Clonazepam 0.5 mg 10/27/23 23:14 10/29/23 10:33 Clonazepam (*Crx) 0.5 Mg Tablet PO 0.5 mg TID PRN Administration Anxiety Famotidine 10 mg 10/28/23 16:35 10/29/23 08:42 Famotidine 10 Mg Tablet PO 10 mg Q12HR MONIKA Administration Ampicillin Sodium/Sulbactam Sodium 3 gm in 100 mls @ 200 mls/hr 10/28/23 00:00 10/29/23 12:42 Unasyn 3 Gm/Ns 100 Ml IVPB 200 mls/hr Q6H MONIKA Administration Morphine Sulfate 2 mg 10/27/23 18:41 10/29/23 05:16 Morphine Sulfate (*Crx) 2 Mg/Ml Inj IV PUSH 2 mg Q4H PRN Administration Pain Rated 7-10 Potassium Chloride 20 meq 10/29/23 17:00 Potassium Chloride 20 Meq Er Tablet PO 10/29/23 17:01 ONCE ONE Trazodone HCl 50 mg 10/27/23 23:14 10/28/23 23:00 Trazodone Hcl 50 Mg Tablet PO 50 mg HS PRN Administration Insomnia Radiology Results: ITS Impressions Face CT 10/27/23 14:02 IMPRESSION: 1. Extensive dental disease. 2. Left face soft tissue swelling. No soft tissue abscess. 3. Mild left submandibular lymphadenopathy, likely reactive. Labs Labs: Laboratory Results - last 24 hr 10/29/23 06:30 WBC 13.6 H RBC 3.16 L Hgb 9.0 L Hct 28.3 L MCV 89.6 MCH
== END 2023-10-29 15:00 | disposition left against medical advice (07) | DRG 383 ==
LOC: ANHED 13:16 → ANH3MEDSUR 17:57 → ANH3MED 19:08
PROVIDERS: Student in an Organized Health Care Education/Training Program; Admitting Provider General Practice; Emergency Provider Physician Assistant; PCP Physician Assistant; Visit Provider Nurse Practitioner
DX: L03.211 Cellulitis of face (principal); E87.6 Hypokalemia; F41.9 Anxiety disorder, unspecified; Z87.891 Personal history of nicotine dependence; Z90.710 Acquired absence of both cervix and uterus
CPT/HCPCS: 36415; 70487; 80048; 80053; 83605; 83735; 85025; 85652; 86140; 87040; 96361; 96365; 96366; 96367; 96375; 96376; 99285; A9270; G0379; J0295; J0360; J1741; J2270; J2930; J3370; J3480; J7030; J7040; Q9967